=== PATIENT | male | born 1970 | race Caucasian/White ===

== ENCOUNTER 2019-12-29 10:30 | Emergency (ER) | payer OTHER, SELFPAY ==
--- NOTE | 2019-12-29 10:34 | ED.BACK ---
HPI - Back Pain/Injury General Chief Complaint: Back Pain/Injury Stated Complaint: neck and back pain Time Seen by Provider: 12/29/19 10:34 Source: patient and RN notes reviewed History of Present Illness HPI Narrative: Patient is a 49-year-old male who presents the urgent care with complaints of right upper back and neck pain. Patient states he is also having pain into the right shoulder. States it is waking him up at night. Patient reports of the pain ongoing for approximately 2 to 3 weeks. Denies of any known trauma or fall. States that he has been taking ibuprofen, Biofreeze and using ice. Patient states that he is going hunting and wants to make sure his pain is gotten under control . Patient also reports that he has shrapnel in his neck/upper back from a related incident, years prior. Denies of chest pain or any cardiac history. Patient states that he has been seeing a chiropractor for the last week which has slowly improved the pain. No other acute complaints. No acute distress noted. Patient aware of the plan of care. Some parts of this dictation were generated by voice recognition software and may contain typographical and/or grammatical inaccuracies. Related Data Home Medications Medication Instructions Recorded Confirmed escitalopram oxalate 10 mg PO DAILY 12/29/19 12/29/19 prazosin 1 mg PO HS 12/29/19 12/29/19 Allergies Allergy/AdvReac Type Severity Reaction Status Date / Time No Known Allergies Allergy Unknown Unverified 11/29/17 18:15 Review of Systems Review of Systems: Narrative: CONSTITUTIONAL: Denies fever, chills, or sweats. EYES: Denies visual changes, redness, or discharge. ENT: Denies rhinorrhea, congestion, sore throat, or otalgia. CARDIOVASCULAR: Denies chest pain, palpitations, or edema. RESPIRATORY: Denies cough or dyspnea. GASTROINTESTINAL: Denies abdominal pain, nausea, vomiting, or diarrhea. GENITOURINARY: Denies dysuria or hematuria. SKIN: Denies rash or itching. MUSCULOSKELETAL: report of right upper back pain into the right shoulder, and right neck pain NEUROLOGIC: Denies headache, numbness, or weakness. All other systems reviewed are negative, except as documented in HPI. PMFSH Comments At the time of my signature, I reviewed and agree with the nursing past medical, surgical, social, and family history. There is no relevant family history pertinent to the patient complaint. Exam Narrative: Exam Narrative: GENERAL: This is a well-nourished, well-developed patient, in no apparent distress. HEAD: normocephalic, atraumatic. EYES: PERRL. Sclera clear/white. Vision is grossly intact. EARS: External ears normal NOSE: External nose normal with no obvious nasal discharge, nares without redness, no rhinorrhea. THROAT: Mucous membranes moist, posterior pharynx clear. NECK: Neck supple, no cervical tenderness. Chin tuck, had left and side to side flexion within normal limits without exacerbated pain CARDIOVASCULAR: Regular rate and rhythm SKIN: warm, intact with no suspicious lesions or rash, good texture and turgor. NEURO: awake, alert, and oriented to person, place and time. There were no obvious focal neurologic abnormalities. EXTREMITIES: No clubbing, cyanosis, or edema. Range of motion to right upper extremity within normal limits without any palpated tenderness BACK: Nontender without deformity or crepitance. Course Vital Signs Vital signs: Vital Signs Temperature 97.4 F L 12/29/19 10:39 Pulse Rate 76 12/29/19 10:39 Respiratory Rate 16 12/29/19 10:39 Blood Pressure 142/84 H 12/29/19 10:39 Pulse Oximetry 98 12/29/19 10:39 Temperature 97.4 F L 12/29/19 10:39 Pulse Rate 76 12/29/19 10:39 Respiratory Rate 16 12/29/19 10:39 Blood Pressure 142/84 H 12/29/19 10:39 Pulse Oximetry 98 12/29/19 10:39 Reviewed-patient is informed that they may have pre-hypertension or hypertension based on a blood pressure reading in the department. I recommend the p
[2019-12-29 10:39] VITALS: BP 142/84; PULSE 76; RESP 16; TEMP 36.3; O2SAT 98
== END 2019-12-29 11:06 | disposition home or self-care (01) ==
PROVIDERS: Emergency Provider Nurse Practitioner Family; PCP Family Medicine
DX: M54.12 Radiculopathy, cervical region (principal); F43.10 Post-traumatic stress disorder, unspecified
CPT/HCPCS: 99213; G0463

== ENCOUNTER 2020-01-29 15:39 | Emergency (ER) | payer OTHER, SELFPAY ==
--- NOTE | 2020-01-29 15:41 | ED.GENADULT ---
HPI - General Adult General Chief complaint: Upper Respiratory Infection Stated complaint: HEAD CONGESTION Time Seen by Provider: 01/29/20 15:41 Source: patient Mode of arrival: ambulatory Limitations: no limitations History of Present Illness HPI narrative: 49-year-old male patient presents to the [facility] with complaints of nasal congestion and congestion bilateral ears for the past 6 days. Denies fevers, body aches or chills. Denies any cough, chest pain or shortness of breath. Denies any abdominal pain, nausea, vomiting or diarrhea. Patient denies taking anything for his symptoms since they started. Patient denies getting a flu shot yet this year. Related Data Home Medications Medication Instructions Recorded Confirmed escitalopram oxalate 10 mg PO DAILY 12/29/19 12/29/19 prazosin 1 mg PO HS 12/29/19 12/29/19 Allergies Allergy/AdvReac Type Severity Reaction Status Date / Time No Known Allergies Allergy Unknown Unverified 11/29/17 18:15 Review of Systems Review of Systems: Narrative: CONSTITUTIONAL: Denies fever, chills, or sweats. EYES: Denies visual changes, redness, or discharge. ENT: Denies rhinorrhea, positive congestion, sore throat, positive congestion bilateral ears CARDIOVASCULAR: Denies chest pain, palpitations, or edema. RESPIRATORY: Denies cough or dyspnea. GASTROINTESTINAL: Denies abdominal pain, nausea, vomiting, or diarrhea. GENITOURINARY: Denies dysuria or hematuria. SKIN: Denies rash or itching. MUSCULOSKELETAL: Denies back pain, joint pain, or myalgia. NEUROLOGIC: Denies headache, numbness, or weakness. PSYCHIATRIC: Denies anxiety or depression. [facility] Past Medical History Medical History (Updated 01/29/20 @ 15:55 by ISHAN Saeed) Depression Hypertension PTSD (post-traumatic stress disorder) Surgical History Surgical History (Updated 01/29/20 @ 15:42 by ISHAN Saeed) Hx of tonsillectomy Comments At the time of my signature I agree with nursing past medical history, surgical, social, and family history. There is no relevant family history pertinent to the presenting complaint. Exam Narrative: Exam Narrative: GENERAL: Well-appearing, well-nourished, and in no acute distress. HEAD: Normocephalic, atraumatic. EYES: PERRLA and EOMI. ENT: Nares with erythema and edema noted bilaterally, no rhinorrhea or epistaxis. Mucous membranes moist. Posterior pharynx with no erythema, tonsil management, exudates or lesions present. Bilateral TMs are clear no erythema or foreign bodies in the canal. NECK: Supple. No lymphadenopathy CHEST: Clear to auscultation. No respiratory distress. HEART: Regular rate and rhythm. No murmur heard. Normal peripheral pulses. ABDOMEN: Soft, nontender, nondistended, normal active bowel sounds. EXTREMITIES: Normal range of motion. No edema. SKIN: Warm, dry, no rash. NEURO: No focal deficits. Alert and oriented x3. Course Vital Signs Vital signs: Vital Signs Temperature 36.4 C 01/29/20 15:51 Pulse Rate 91 01/29/20 15:51 Respiratory Rate 16 01/29/20 15:51 Blood Pressure 140/87 01/29/20 15:51 Pulse Oximetry 97 01/29/20 15:51 Temperature 36.4 C 01/29/20 15:51 Pulse Rate 91 01/29/20 15:51 Respiratory Rate 16 01/29/20 15:51 Blood Pressure 140/87 01/29/20 15:51 Pulse Oximetry 97 01/29/20 15:51 Vital signs reviewed. The patient has been informed that they may have pre-hypertension or Hypertension based on a BP reading in the department. I recommend that the patient call the primary care provider listed on their discharge instructions or a physician of their choice this week to arrange follow up for further evaluation of possible pre-hypertension or Hypertension Medical Decision Making Differential Diagnosis Differential Diagnosis: Differential diagnosis: Allergic rhinitis, chronic sinusitis, tonsillitis, acute sinusitis, infectious mononucleosis, seasonal influenza, pertussis, diphtheria, meningococcal disea
[2020-01-29 15:51] VITALS: BP 140/87; PULSE 91; RESP 16; TEMP 36.4; O2SAT 97
== END 2020-01-29 16:00 | disposition home or self-care (01) ==
PROVIDERS: Emergency Provider Nurse Practitioner Family
DX: J01.90 Acute sinusitis, unspecified (principal); J30.9 Allergic rhinitis, unspecified; I10 Essential (primary) hypertension; F43.10 Post-traumatic stress disorder, unspecified
CPT/HCPCS: 99211; G0463

== ENCOUNTER 2020-03-03 14:57 | Emergency (ER) | payer OTHER, SELFPAY ==
[2020-03-03 15:04] VITALS: BP 140/85; PULSE 77; RESP 12; TEMP 36.7; O2SAT 97
[2020-03-03 15:12] VITALS: BP 140/85; PULSE 77; RESP 12; TEMP 36.7; O2SAT 97
--- NOTE | 2020-03-03 15:42 | ED.EXTPRO ---
HPI - Extremity Problem General Chief complaint: Extremity Problem,Nontraumatic Stated complaint: rt shoulder pain Source: patient and RN notes reviewed Limitations: no limitations History of Present Illness HPI Narrative: The patient, who is right-handed schoolteacher, presents with right shoulder pain. Patient states he is a couple day worsening of several month history of right-sided extremity discomfort that is mild, worse with motion, better at rest. He was seen in the past and treated for possible cervical arthritis [no imaging available], today's discomfort is more actually in the deltoid of the shoulder. No fever, gait changes, radiating pain-but he does have some extensor hand numbness involving all digits. No injury, weakness, neck pain. Related Data Home Medications Medication Instructions Recorded Confirmed escitalopram oxalate 10 mg PO DAILY 12/29/19 03/03/20 prazosin 1 mg PO HS 12/29/19 03/03/20 Allergies Allergy/AdvReac Type Severity Reaction Status Date / Time No Known Allergies Allergy Unknown Verified 03/03/20 15:12 Review of Systems Review of Systems: Narrative: General/Constitutional: No weight loss,fever Eyes: N0: Redness,discharge Ears/Nose/Throat: No: Epistaxis,ear discharge Respiratory: Denies: Hemoptysis Gastrointestinal: No Vomiting, Bleeding-rectal Skin: No Lumps, eruption Neurologic: No Focal Weakness,Sz Hematologic: Denies: Petechiae/Purpura Psychiatric: No: Suicida ideationl All Other Systems: Reviewed and Negative [facility] Past Medical History Medical History (Updated 03/03/20 @ 15:59 by Venu Pathak MD) Depression Hypertension PTSD (post-traumatic stress disorder) Surgical History Surgical History (Updated 01/29/20 @ 15:42 by ISHAN Saeed) Hx of tonsillectomy Comments At time of signature, agree with nursing past medical, surgical, social and family history. There is no relevant family history pertinent to the presenting complaint Exam Narrative: Exam Narrative: General Appearance: Well appearing, , Conjunctiva clear Ears: External ear normal, Auditory canal normal Nose: Normal nose, Nares clear Mouth/Throat: Normal appearing, Normal lips Neck: Supple Respiratory: Airway patent, No respiratory distress Musculoskeletal: Normal strength (mostly intact, limited flexion/extension by pain), Tenderness (deltoid/laterally, with mild decreased ROM), no swelling. Negative drop arm test, Egan You impingement, and negative Dean's/can test Skin: Warm, Dry, Normal color Neurological: A&O x3, Normal affect Course Vital Signs Vital signs: Vital Signs Temperature 98.1 F 03/03/20 15:04 Pulse Rate 77 03/03/20 15:04 Respiratory Rate 12 03/03/20 15:04 Blood Pressure 140/85 03/03/20 15:04 Pulse Oximetry 97 03/03/20 15:04 Temperature 98.1 F 03/03/20 15:12 Pulse Rate 77 03/03/20 15:12 Respiratory Rate 12 03/03/20 15:12 Blood Pressure 140/85 03/03/20 15:12 Pulse Oximetry 97 03/03/20 15:12 Discharge Plan Discharge Clinical Impression: Bursitis of shoulder, right Patient Disposition: Home, Self-Care Condition: Stable Instructions: Shoulder Bursitis (ED) Prescriptions: New acetaminophen-codeine 300-30 mg tablet 1 tablet PO HS PRN (Reason: pain) Qty: 15 RF: 0 prednisone 20 mg tablet 60 mg PO DAILY Qty: 15 RF: 0 No Action prazosin 1 mg Capsule 1 mg PO HS RF: 0 escitalopram oxalate 10 mg PO DAILY RF: 0 Follow-up/Referrals: UNKNOWN,DOCTOR [Primary Care Provider] -
== END 2020-03-03 16:03 | disposition home or self-care (01) ==
PROVIDERS: Emergency Provider Emergency Medicine
DX: M75.51 Bursitis of right shoulder (principal); I10 Essential (primary) hypertension; F32.9 Major depressive disorder, single episode, unspecified; F43.10 Post-traumatic stress disorder, unspecified
CPT/HCPCS: 99213; G0463

== ENCOUNTER 2023-11-06 13:00 | Emergency (ER) | payer OTHER, SELFPAY ==
[2023-11-06 13:29] VITALS: BP 135/84; PULSE 82; PULSE 84; RESP 16; TEMP 36.8; TEMP 37.1; O2SAT 97
--- NOTE | 2023-11-06 13:35 | ED.GENADULT ---
HPI - General Adult General Chief complaint: Upper Respiratory Infection Stated complaint: sinus infection Time Seen by Provider: 11/06/23 13:36 Source: patient Mode of arrival: ambulatory Limitations: no limitations History of Present Illness HPI narrative: 53-year-old male patient presents to the [facility] with complaints of cold symptoms for past 4 days. Denies fevers, body aches and chills. Patient states he has had a lot a congestion drainage mild sore throat. Patient states he has been taking some [id number] Mucinex but denies any other medications for symptoms. Related Data Home Medications Medication Instructions Recorded Confirmed prazosin 1 mg capsule 1 mg PO HS 12/29/19 11/06/23 escitalopram oxalate 10 mg tablet 10 mg PO DAILY 11/06/23 11/06/23 (Lexapro) gabapentin 300 mg capsule 300 mg PO TID 11/06/23 11/06/23 Allergies Allergy/AdvReac Type Severity Reaction Status Date / Time No Known Allergies Allergy Unknown Verified 03/03/20 15:12 Review of Systems Review of Systems: CONSTITUTIONAL: Denies fever, chills, or sweats. EYES: Denies visual changes, redness, or discharge. ENT: Positive rhinorrhea, congestion, sore throat, denies otalgia. CARDIOVASCULAR: Denies chest pain, palpitations, or edema. RESPIRATORY: positive mild nonproductive cough , denies dyspnea. GASTROINTESTINAL: Denies abdominal pain, nausea, vomiting, or diarrhea. GENITOURINARY: Denies dysuria or hematuria. SKIN: Denies rash or itching. MUSCULOSKELETAL: Denies back pain, joint pain, or myalgia. NEUROLOGIC: Denies headache, numbness, or weakness. PSYCHIATRIC: Denies anxiety or depression. PMFSH Past Medical History Medical History Depression Hypertension PTSD (post-traumatic stress disorder) Surgical History Surgical History Hx of tonsillectomy Comments at the time of my signature I agree with nursing past medical history, surgical, social, and family history. There is no relevant family history pertinent to the presenting complaint. Exam Narrative: GENERAL: Well-appearing, well-nourished, and in no acute distress. HEAD: Normocephalic, atraumatic. EYES: PERRLA and EOMI. ENT: Nares with erythema edema noted bilaterally, no rhinorrhea or epistaxis. Mucous membranes moist. posterior pharynx with a little postnasal drip present no erythema, tonsillar enlargement, exudates or lesions present. NECK: Supple. No lymphadenopathy CHEST: Clear to auscultation. No respiratory distress. HEART: Regular rate and rhythm. No murmur heard. Normal peripheral pulses. ABDOMEN: Soft, nontender, nondistended, normal active bowel sounds. EXTREMITIES: Normal range of motion. No edema. SKIN: Warm, dry, no rash. NEURO: No focal deficits. Alert and oriented x3. Course Course Level of Care: Express Care Visit Vital Signs Vital signs: Vital Signs Temperature 37.1 C 11/06/23 13:29 Pulse Rate 82 11/06/23 13:29 Respiratory Rate 16 11/06/23 13:29 Blood Pressure 135/84 11/06/23 13:29 Pulse Oximetry 97 11/06/23 13:29 Oxygen Delivery Room Air 11/06/23 13:29 Temperature 36.8 C 11/06/23 13:29 Pulse Rate 84 11/06/23 13:29 Respiratory Rate 16 11/06/23 13:29 Blood Pressure 135/84 11/06/23 13:29 Pulse Oximetry 97 11/06/23 13:29 Oxygen Delivery Room Air 11/06/23 13:29 Vital signs reviewed. The patient has been informed that they may have pre-hypertension or Hypertension based on a BP reading in the department. I recommend that the patient call the primary care provider listed on their discharge instructions or a physician of their choice this week to arrange follow up for further evaluation of possible pre-hypertension or Hypertension Medical Decision Making MDM Narrative Medical decision making narrative: Plan of care patient is to test him today for COVID. If this is n
== END 2023-11-06 14:03 | disposition home or self-care (01) ==
PROVIDERS: Emergency Provider Nurse Practitioner Family
DX: U07.1 COVID-19 (principal); I10 Essential (primary) hypertension; F32.A Depression, unspecified; F43.10 Post-traumatic stress disorder, unspecified
CPT/HCPCS: 87426; 99212; G0463

== ENCOUNTER 2024-11-06 16:24 | Emergency (ER) | payer OTHER, SELFPAY ==
[2024-11-06 16:30] VITALS: BP 131/88; PULSE 79; RESP 20; TEMP 36.6; O2SAT 98
--- NOTE | 2024-11-06 16:36 | ED.WOUNDLAC ---
HPI - Wound/Laceration General Chief Complaint: Wound/Laceration Stated Complaint: Cut Hand Time Seen by Provider: 11/06/24 16:26 Source: patient Mode of arrival: ambulatory Limitations: no limitations History of Present Illness HPI narrative: Olegario is a 54-year-old male patient presenting to the clinic today with complaints of a cut to his left hand lateral palm. States he was goofing off at work and is unsure of what he cut his hand on. Thinks that may have been a wood door stop block. Tetanus is unknown. Bleeding is controlled. Patient has full range of motion of the left hand. Related Data Home Medications ?Medication ?Instructions ?Recorded ?Confirmed ?Last Taken ?Type prazosin 1 mg capsule 1 mg PO HS 12/29/19 11/06/23 12/28/19 History escitalopram oxalate 10 mg tablet 10 mg PO DAILY 11/06/23 11/06/23 Unknown History (Lexapro) gabapentin 300 mg capsule 300 mg PO TID 11/06/23 11/06/23 Unknown History Allergies Allergy/AdvReac Type Severity Reaction Status Date / Time No Known Allergies Allergy Unknown Verified 03/03/20 15:12 Review of Systems Review of Systems: Pertinent positives per HPI. Patient denies any fever, chills, rash, headache, visual changes, dizziness, cough, runny nose, sore throat, shortness of breath, chest pain, palpitations, nausea, vomiting, diarrhea, constipation, abdominal pain, or any urinary issues. PMFSH Past Medical History Medical History Depression Hypertension PTSD (post-traumatic stress disorder) Surgical History Surgical History Hx of tonsillectomy Comments At the time of my signature, I reviewed and agree with the nursing past medical, surgical, social, and family history. There is no relevant family history pertinent to the patient complaint. Exam Narrative: General: Well-developed, well nourished, in no apparent distress Head: Normocephalic, atraumatic. Cardio: Regular rate and rhythm, s1 and s2 normal, no murmur appreciated. Resp: Clear to auscultation bilaterally, no rhonchi, rales, wheezing or rubs. Integumentary: [place], warm, and dry, 2 cm laceration to the left hand/lateral palm, bleeding controlled Course Course Emergency Course: Portions of this record may have been created with voice recognition software. Level of Care: Express Care Visit Vital Signs Vital signs: Vital Signs Temperature 36.6 C 11/06/24 16:30 Pulse Rate 79 11/06/24 16:30 Respiratory Rate 20 11/06/24 16:30 Blood Pressure 131/88 11/06/24 16:30 Pulse Oximetry 98 11/06/24 16:30 Oxygen Delivery Room Air 11/06/24 16:30 Temperature 36.6 C 11/06/24 16:30 Pulse Rate 79 11/06/24 16:30 Respiratory Rate 20 11/06/24 16:30 Blood Pressure 131/88 11/06/24 16:30 Pulse Oximetry 98 11/06/24 16:30 Oxygen Delivery Room Air 11/06/24 16:30 Vital signs reviewed Procedures Laceration Laceration 1: Date: 11/06/24 Site: hand Side (If applicable): left Size (cm): 2 Description: linear and irregular Depth: simple, single layer Local Anesthetic: lidocaine 1% Amount of anesthesia used (mL): 2 Pre-repair: wound explored and irrigated ====== Skin Level ====== Skin layer closed with: nylon Size (cm): 5-0 Number of sutures: 4 Technique: simple, interrupted ====== Subcutaneous Layer ====== ====== Muscle Layer ====== ====== Tendon Layer ====== Dressing: Verbal consent obtained for laceration repair. Risk and benefits explained and patient voiced understanding. Area was cleansed with sterile normal saline and antiseptic wound wash and a 27 gauge needle was then used to instill (2) ml of 1% lidocaine without epi into the wound edges. Area was prepped and draped using sterile technique. A 5-0 suture on a p needle was used to place (4) interrupted sutures bringing the wound edges together- well approximated. Patient tolerated procedure well. Sterile dressing applied. MDM - Wound/Laceration MDM Narrative Medical decision making narrative: At the time of visit patient is resting comfortably on the exam table. Patient appears to be nontoxic. Complaints of a cut to his left hand lateral palm. States he was goofing off at work and is unsure of what he cut his hand on. Thinks that may have been a wood door stop block. Tetanus is unknown. Bleeding is controlled. Patient has full range of motion of the left hand. On exam patient has 2 cm laceration to the palm of the left lateral hand. Tdap was ordered Medications: Tdap 0.5 mL IM given in the clinic today Procedures: Laceration repair was performed in the clinic today. Risk and benefits were reviewed. 5-0 suture-4 interrupted sutures were placed bringing wound edges well approximate. Patient tolerated well. Telfa and triple antibiotic ointment dressing was applied. Plan: Patient has a 2 cm laceration to the lateral left palm. Four interrupted 5 0 sutures were placed bringing wound edges well approximate. Patient tolerated procedure well. Sutures out 7 days. Supportive measures were discussed with the patient and they voiced understanding discharge instructions and agrees to treatment plan. Return precautions reviewed Differential Diagnosis Differential diagnosis: Likely laceration, abscess, abrasion and avulsion of skin Discharge Plan Discharge Clinical Impression: Laceration of hand Qualifiers: Encounter type: initial encounter Foreign body presence: without foreign body Laterality: left Qualified Code(s): S61.412A - Laceration without foreign body of left hand, initial encounter Patient Disposition: Home Condition: Stable Instructions: Antibiotic Form, Laceration (ED) Additional Instructions: Tetanus was updated in the clinic today. Leave bandage on for 24 hours then may remove and apply band aide covering as needed. Keep wound clean and dry Skin sutures out in 7 days. Watch for signs and symptoms of infection- redness, streaking, swelling, purulent discharge, or increase in pain. Follow up with your PCP for suture removal or return to the Express care. Patient Language: Jamaican Prescriptions: No Action prazosin 1 mg Capsule 1 mg PO HS gabapentin 300 mg capsule 300 mg PO TID escitalopram oxalate [Lexapro] 10 mg Tablet 10 mg PO DAILY Follow-up/Referrals: PHYSICIAN,DIRECTOR [employer]LINE MARKETING [Primary Care Provider, Internal Medicine] Time of Disposition: 16:40 Quality NIHSS Nursing Documentation ED NIHSS nursing documentation: reviewed/agree
[2024-11-06] MEDS: TETANUS,DIPHTHERIA,AC PERTUSSIS ADULT (0.5 ML) BOOSTRIX IM (16:42)
[2024-11-06] MEDS: LIDOCAINE 1% LOCAL INJ 2 ML AMPUL INFILTRATE (16:42)
== END 2024-11-06 17:06 | disposition home or self-care (01) ==
PROVIDERS: Emergency Provider Nurse Practitioner Family
DX: S61.412A Laceration without foreign body of left hand, initial encounter (principal); W45.8XXA Other foreign body or object entering through skin, initial encounter; F32.A Depression, unspecified; F43.10 Post-traumatic stress disorder, unspecified; I10 Essential (primary) hypertension; Z23 Encounter for immunization
CPT/HCPCS: 12001; 90471; 90715; 99212; G0463; J2003